=== PATIENT | male | born 1945 | race Caucasian/White ===

== ENCOUNTER 2017-12-21 00:45 | Emergency (ER) | payer MEDICARE, MEDICAID ==
[~2017-12-21] VITALS: Ht 154.9 cm; Wt 64.0 kg
[~2017-12-21 00:45] MED LIST: AMLO-511 PO; APIX5TAB PO; ATOR20TA86 PO; CARV6 PO; HYDR-2924 PO; HYDR25TA PO; SODI650T PO
[2017-12-21] MEDS ORDERED: TRANEXAMIC ACID 1,000 MG/10 ML VIAL IVP ONE ×2 (01:45)
[2017-12-21 02:53] VITALS: BP 124/53
== END 2017-12-21 03:08 | disposition home or self-care (01) ==
LOC: EMS 00:47
DX: K91.841 Postprocedural hemorrhage of a digestive system organ or structure following other procedure (principal); I10 Essential (primary) hypertension
CPT/HCPCS: 96374; 99284; J3490; 99283

== ENCOUNTER 2020-08-04 13:38 | Emergency (ER) | payer MEDICARE, MEDICAID ==
[~2020-08-04] VITALS: Ht 170.2 cm; Wt 68.0 kg
[~2020-08-04 13:38] MED LIST changes: +AMLO-257 PO; -AMLO-511 PO; +HYDR-1475 PO; -HYDR25TA PO; -SODI650T PO; +SODI650T33 PO
[2020-08-04] MEDS ORDERED: LOSA100T58 PO (14:04)
[2020-08-04] MEDS ORDERED: ASPI81TA39 PO (14:04)
[2020-08-04 14:29] VITALS: BP 148/98
[2020-08-04 14:48] LABS: GLUCOSE,POINT OF CARE 135 MG/DL (70-110)
== END 2020-08-04 18:55 | disposition left against medical advice (07) ==
LOC: EMS 13:45
DX: R50.9 Fever, unspecified (principal); Z53.21 Procedure and treatment not carried out due to patient leaving prior to being seen by health care provider

== ENCOUNTER 2020-08-11 15:36 | Emergency (ER) | payer MEDICARE, MEDICAID ==
[~2020-08-11] VITALS: Ht 165.1 cm; Wt 65.9 kg
[~2020-08-11 15:36] MED LIST changes: +ASPI81TA39 PO; +LOSA100T58 PO
[2020-08-11] MEDS ORDERED: LOSA50TA37 PO (17:03)
[2020-08-11] MEDS ORDERED: CEPHALEXIN MONOHYDRATE 500 MG CAPSULE PO ONE (17:15)
[2020-08-11 17:32] VITALS: BP 192/80
== END 2020-08-11 17:42 | disposition home or self-care (01) ==
LOC: EMS 15:36
DX: L03.012 Cellulitis of left finger (principal); I12.0 Hypertensive chronic kidney disease with stage 5 chronic kidney disease or end stage renal disease; N18.6 End stage renal disease; Z99.2 Dependence on renal dialysis; Z79.82 Long term (current) use of aspirin
CPT/HCPCS: 99283